=== PATIENT | male | born 1960 | race Caucasian/White ===

== ENCOUNTER 2025-02-11 09:10 | Emergency (ER) | payer BC ==
[~2025-02-11] VITALS: Ht 182.8 cm; Wt 93.0 kg
[~2025-02-11 09:10] MED LIST: ANTIBIOTIC28.4 GM T
[2025-02-11 10:38] LABS: BASO # 0.0 10*3/uL (0.0-0.1); BASO % 0.2 % (0.0-1.0); EOS # 0.1 10*3/uL (0.0-0.4); EOS % 0.6 % (1.0-4.0); MEAN CELL VOLUME 88.6 fl (80.0-94.0); MEAN CORPUSCULAR HGB 30.3 pg (27.0-31.0); MEAN PLATELET VOLUME 9.1 fl (9.6-12.3); MONO # 0.9 10*3/uL (0.1-1.0); MONO % 10.0 % (3.0-9.0); NEUT # 7.0 10*3/uL (2.3-7.9); NEUT % 77.5 % (47.0-73.0); NUCLEATED RED BLOOD CELL 0.0 % (0.0-0.0); NUCLEATED RED BLOOD CELL 0.0 10*3/uL (0.0-0.0); PLATELET COUNT AUTOMATED 180 10*3/uL (130-400); RED CELL DISTRI WIDTH 12.8 % (0-14.5)
[2025-02-11 10:57] LABS: BILIRUBIN Negative (Negative); BLOOD Negative (Negative); CLARITY Clear (Clear); COLOR Dark Yellow (Yellow); KETONE 2+ (Negative); LEUKO ESTERASE Trace (Negative); NITRITE Negative (Negative); PH 5.5 (4.5-8.0); SPECIFIC GRAVITY 1.025 (1.001-1.030); UROBILINOGEN 1.0 E.U./dl (0.0-1.0)
[2025-02-11 10:58] LABS: BUN 12 mg/dl (9-23)
[2025-02-11] MEDS ORDERED: SODIUM CHLORIDE 0.9% 1,000 ML IV ONE (11:00)
[2025-02-11 11:14] LABS: BACTERIA TRACE
== END 2025-02-11 13:24 | disposition home or self-care (01) ==
LOC: ED 09:10
PROVIDERS: Emergency Medicine
DX: N13.2 Hydronephrosis with renal and ureteral calculous obstruction (principal); F17.200 Nicotine dependence, unspecified, uncomplicated

== ENCOUNTER → 2025-03-06 | Outpatient (CLI) | payer BC ==
[2025-03-06 10:31] LABS: BASO # 0.0 10*3/uL (0.0-0.1); BASO % 0.4 % (0.0-1.0); EOS # 0.5 10*3/uL (0.0-0.4); EOS % 7.0 % (1.0-4.0); MEAN CELL VOLUME 89.0 fl (80.0-94.0); MEAN CORPUSCULAR HGB 30.2 pg (27.0-31.0); MEAN PLATELET VOLUME 9.2 fl (9.6-12.3); MONO # 0.6 10*3/uL (0.1-1.0); MONO % 8.0 % (3.0-9.0); NEUT # 4.7 10*3/uL (2.3-7.9); NEUT % 62.4 % (47.0-73.0); NUCLEATED RED BLOOD CELL 0.0 % (0.0-0.0); NUCLEATED RED BLOOD CELL 0.0 10*3/uL (0.0-0.0); PLATELET COUNT AUTOMATED 146 10*3/uL (130-400); RED CELL DISTRI WIDTH 13.5 % (0-14.5)
[2025-03-06 10:32] LABS: BILIRUBIN Negative (Negative); BLOOD Negative (Negative); CLARITY Clear (Clear); COLOR Yellow (Yellow); KETONE Negative (Negative); LEUKO ESTERASE Negative (Negative); NITRITE Negative (Negative); SPECIFIC GRAVITY 1.015 (1.001-1.030); UROBILINOGEN 0.2 E.U./dl (0.0-1.0)
[2025-03-06 10:57] LABS: BUN 13 mg/dl (9-23); SGPT/ALT 23 U/L (5-49)
[2025-03-06 11:15] LABS: PH 8.5 (4.5-8.0)
[2025-03-06 11:20] LABS: RBC 0-2 rbc/hpf (0-2); WBC 0-2 wbc/hpf (0-5)
== END | disposition home or self-care (01) ==
LOC: LAB 09:50
PROVIDERS: ATTEND Nurse Practitioner
DX: N20.0 Calculus of kidney (principal); R53.83 Other fatigue

== ENCOUNTER → 2025-03-07 | Outpatient (CLI) | payer BC | END | disposition home or self-care (01) | LOC: LAB 12:24 | PROVIDERS: ATTEND Nurse Practitioner | DX: N20.0 Calculus of kidney (principal); N19 Unspecified kidney failure; R53.83 Other fatigue ==

== ENCOUNTER → 2025-03-15 | Outpatient (CLI) | payer BC | END | disposition home or self-care (01) | LOC: US 08:21 | PROVIDERS: ATTEND Urology | DX: N20.0 Calculus of kidney (principal) ==

== ENCOUNTER → 2025-03-23 | Outpatient (CLI) | payer BC ==
[2025-03-23 08:08] LABS: BASO # 0.0 10*3/uL (0.0-0.1); BASO % 0.4 % (0.0-1.0); EOS # 0.3 10*3/uL (0.0-0.4); EOS % 3.1 % (1.0-4.0); MEAN CELL VOLUME 90.1 fl (80.0-94.0); MEAN CORPUSCULAR HGB 30.0 pg (27.0-31.0); MEAN PLATELET VOLUME 8.8 fl (9.6-12.3); MONO # 0.7 10*3/uL (0.1-1.0); MONO % 7.6 % (3.0-9.0); NEUT # 6.7 10*3/uL (2.3-7.9); NEUT % 74.4 % (47.0-73.0); NUCLEATED RED BLOOD CELL 0.0 % (0.0-0.0); NUCLEATED RED BLOOD CELL 0.0 10*3/uL (0.0-0.0); PLATELET COUNT AUTOMATED 188 10*3/uL (130-400); RED CELL DISTRI WIDTH 14.1 % (0-14.5)
[2025-03-23 08:51] LABS: BUN 12 mg/dl (9-23); SGPT/ALT 19 U/L (5-49)
== END | disposition home or self-care (01) ==
LOC: LAB 07:19 → RAD 07:19
PROVIDERS: ATTEND Nurse Practitioner
DX: N20.0 Calculus of kidney (principal)

== ENCOUNTER → 2025-03-24 | Outpatient (CLI) | payer BC | END | disposition home or self-care (01) | LOC: LAB 12:00 | DX: R19.7 Diarrhea, unspecified (principal) ==

== ENCOUNTER → 2025-03-25 | Outpatient (CLI) | payer BC | END | disposition home or self-care (01) | LOC: LAB 07:08 | PROVIDERS: Nurse Practitioner | DX: N20.0 Calculus of kidney (principal); N19 Unspecified kidney failure; R53.83 Other fatigue ==